=== PATIENT | female | born 1945 | race Hispanic/Latino ===

== ENCOUNTER 2017-03-17 20:14 | Emergency (ER) | payer MEDICARE ==
[2017-03-17 20:58] LABS: Urine Drugs of Abuse Note Disclamer
[2017-03-17 21:16] LABS: Bilirubin,Urine NEG (Negative); Blood,Urine NEG (Negative); Ketones,Urine NEG (Negative); Leukocyte Esterase,Urine TR (Negative); Mucus,Urine FEW /HPF; Nitrite,Urine NEG (Negative); Protein,Urine <15 mg/dL mg/dL (Negative); Urobilinogen,Urine < 2.0 mg/dL (<2.0)
[2017-03-17 21:24] LABS: Hematocrit 41.5 % (30.3-42.9); Hemoglobin 13.5 gm/dl (10.1-14.3); Mean Corpuscular HGB Conc 33 % (30-34); Mean Corpuscular Hemoglobin 31 pg (28-32); Mean Corpuscular Volume 95 fl (79-97); Platelet Count 250 K/mm3 (140-440); Red Blood Count 4.36 M/mm3 (3.65-5.03); Red Cell Distribution Width 12.2 % (13.2-15.2); White Blood Count 7.2 K/mm3 (4.5-11.0)
[2017-03-17 21:27] LABS: Anion Gap 18 mmol/L; BUN/Creatinine Ratio 24.44; Blood Urea Nitrogen 22 mg/dL (7-17); Calcium 10.5 mg/dL (8.4-10.2); Carbon Dioxide 29 mmol/L (22-30); Chloride 93.8 mmol/L (98-107); Glucose 94 mg/dL (65-100); Potassium 4.5 mmol/L (3.6-5.0); Sodium 136 mmol/L (137-145)
--- NOTE | 2017-03-17 22:33 | Emergency Department Report ---
HPI - General Chief Complaint: Medical Clearance Time Seen by Provider: 03/17/17 21:40 - HPI HPI: This is a 71-year-old female who presents the emergency department, dropped off by friends, with complaint of needing a medical clearance so that she can go to [facility] [place]. The patient says that last night she shoplifted a bracelet. When asked why she did it, she says that she is not sure but she is ashamed and feels that it has "ruined by life." She says it was caught on camera, it is on Facebook and "I had to get a material requirements planning manager." She said that after all this happened that she felt very depressed and took 10 hydrocodone that she had been storing, since "I have been trying to get off of it." She also took some Xanax. She woke up this morning and called her friends from [employer] and they brought her to [facility] [place] and she was told to come to [facility] for a medical clearance. The patient has a past psychiatric history of depression, insomnia, previous suicidal ideations, alcohol abuse but sober 10 years. She has a past medical history of hypertension and coronary artery disease. Currently the patient says she feels fine physically, just depressed. ED Past Medical Hx - Past Medical History Hx Hypertension: Yes Hx Psychiatric Treatment: Yes (depression,insomnia,SI) Additional medical history: neuropathy,alcohol abuse-sober>10ys, 2 mild heart attacks - Surgical History Additional Surgical History: right hip replacement x2,left hip replacement x1 - Social History Smoking Status: Unknown if ever smoked Substance Use Type: Prescribed ED Review of Systems ROS: Stated complaint: MEDICAL CLEARANCE Other details as noted in HPI Comment: All other systems reviewed and negative Constitutional: denies: chills, fever Eyes: denies: eye pain, eye discharge, vision change Respiratory: denies: cough, shortness of breath, wheezing Cardiovascular: denies: chest pain, palpitations Gastrointestinal: denies: abdominal pain, nausea, diarrhea Genitourinary: denies: urgency, dysuria, discharge Musculoskeletal: denies: back pain, joint swelling, arthralgia Skin: denies: rash, lesions Neurological: denies: headache, weakness, paresthesias Psychiatric: depression, suicidal thoughts. denies: auditory hallucinations, visual hallucinations, homicidal thoughts Physical Exam - Physical Exam Vital Signs: Vital Signs 03/17/17 20:33 Temperature 98.3 F Pulse Rate 83 Respiratory 18 Rate Blood Pressure 130/80 O2 Sat by Pulse 96 Oximetry Physical Exam: GENERAL: The patient is well-developed well-nourished. HEENT: Normocephalic. Atraumatic. Extraocular motions are intact. Patient has moist mucous membranes. Pupils equal reactive to light bilaterally. NECK: Supple. Trachea is midline. CHEST/LUNGS: Clear to auscultation. There is no respiratory distress noted. HEART/CARDIOVASCULAR: Regular. There is no tachycardia. There is no gallop rub or murmur. ABDOMEN: Abdomen is soft, nontender. Patient has normal bowel sounds. There is no abdominal distention. SKIN: Skin is warm and dry. NEURO: The patient is awake, alert, and oriented. The patient is cooperative. The patient has no focal neurologic deficits. The patient has normal speech. MUSCULOSKELETAL: There is no tenderness or deformity. There is no limitation range of motion. There is no evidence of acute injury. PSYCH: Patient has a flat affect. ED Course Vital Signs 03/17/17 20:33 Temperature 98.3 F Pulse Rate 83 Respiratory 18 Rate Blood Pressure 130/80 O2 Sat by Pulse 96 Oximetry ED Medical Decision Making - Lab Data Result diagrams: 03/17/17 20:57 03/17/17 20:57 - Medical Decision Making 71-year-old female presents the emergency department for a medical clearance that she can go to [facility] [place]. The patient admitted to committing some type of crime last night in which she says that she allegedly stole something, was caught, and may face repercussions in the future. This caused her to have serious regret and depression. The patient has been trying to quit opiate use but had a stash left of hydrocodone and says she took about 10 of them last night as well as a few benzodiazepine's with the intent of "not waking up." Once the patient did wake up she contacted her sponsor's at [employer] who helped her get in touch with [facility] [place] and then she ended up here for medical clearance. The patient otherwise physically says she feels well at this time. Her labs are mostly unremarkable except for positive benzodiazepine's and urine drug screen. The patient was already accepted for admission to [facility] [place]. I did make her a 1013 secondary to her suicidal ideations but she is still able to go to [facility] [place]. - Differential Diagnosis depression, suicidal ideation, bipolar disorder, substance abuse Critical Care Time: No Critical care attestation.: If time is entered above; I have spent that time in minutes in the direct care of this critically ill patient, excluding procedure time. ED Disposition Clinical Impression: Suicidal ideations Depression Qualifiers: Depression Type: unspecified Qualified Code(s): F32.9 - Major depressive disorder, single episode, unspecified Disposition: [id number]/[id number] PSY HOSP/PSY UNIT Is pt being admited?: No Condition: Stable Referrals: PRIMARY CARE, [Primary Care Provider] - 3-5 Days Time of Disposition: 02:15
[2017-03-17 22:53] VITALS: BP 123/67
== END 2017-03-18 00:24 ==
LOC: EDBD → ED 20:14
DX: R45.851 Suicidal ideations (principal); F32.9 Major depressive disorder, single episode, unspecified; I10 Essential (primary) hypertension; Z88.2 Allergy status to sulfonamides; Z88.8 Allergy status to other drugs, medicaments and biological substances
CPT/HCPCS: 36415; 80048; 80307; 81001; 85027; 99285